=== PATIENT | male | born 1980 | race Caucasian/White ===

== ENCOUNTER 2018-03-05 09:43 | Emergency (ER) | payer OTHER ==
[~2018-03-05] VITALS: Ht 190.5 cm; Wt 162.8 kg
[2018-03-05 09:53] VITALS: Ht 190.5 cm; Wt 162.8 kg
[2018-03-05 12:03] VITALS: BP 121/84
== END 2018-03-05 12:03 | disposition home or self-care (01) ==
LOC: ED 09:43
DX: M10.071 Idiopathic gout, right ankle and foot (principal)
CPT/HCPCS: Q0092

== ENCOUNTER 2018-11-18 09:29 | Emergency (ER) | payer OTHER ==
[~2018-11-18] VITALS: Ht 188 cm; Wt 176.0 kg
[2018-11-18 09:35] VITALS: Ht 188 cm; Wt 176.0 kg
[2018-11-18 10:25] LABS: BASOPHIL % 0.6 % (0-2); PLATELET COUNT 255 x10^3mcL (130-400)
[2018-11-18 10:27] LABS: RED CELL DISTRIBUTION WIDTH 16.7 % (11.5-14.5)
[2018-11-18 10:30] LABS: microscopic required? NO
[2018-11-18 10:31] LABS: CALCIUM 9.3 mg/dL (8.5-10.1); CARBON DIOXIDE 23.8 mmol/L (21-32); CHLORIDE SERUM 107 mmol/L (98-107); GFR1 > 60 mL/min; GLUCOSE SERUM 91 mg/dL (74-106); POTASSIUM SERUM 4.2 mmol/L (3.5-5.1); SODIUM SERUM 141 mmol/L (136-145)
[2018-11-18 10:43] LABS: ALBUMIN 3.6 g/dL (3.4-5.0); ALKALINE PHOSPHATASE 83 U/L (46-116); ALT/SGPT 36 U/L (16-63); AST/SGOT 26 U/L (15-37); BILIRUBIN TOTAL 0.58 mg/dL (0.20-1.00); LIPASE 186 IU/L (73-393)
[2018-11-18 11:39] LABS: UA SPECIFIC GRAVITY 1.015 (1.005-1.035); urine erythrocyte NEGATIVE (NEGATIVE)
[2018-11-18 12:31] VITALS: BP 134/75
== END 2018-11-18 12:31 | disposition home or self-care (01) ==
LOC: ED 09:29
PROVIDERS: Emergency Medicine
DX: K57.30 Diverticulosis of large intestine without perforation or abscess without bleeding (principal); M54.5 Low back pain; E66.01 Morbid (severe) obesity due to excess calories; F12.90 Cannabis use, unspecified, uncomplicated; Z68.42 Body mass index [BMI] 45.0-49.9, adult
CPT/HCPCS: J1100; J1885; J7030